=== PATIENT | female | born 1965 | race Caucasian/White ===

== ENCOUNTER 2019-03-30 13:49 | Outpatient (CLI) | payer SELFPAY ==
--- NOTE | 2019-03-30 14:01 | DI.RAD_ITS ---
EXAM: XR HIP LT COMPLETE AND AP PELVIS CLINICAL HISTORY: pain TECHNIQUE: Two views were obtained. COMPARISON: LEFT HIP COMPLETE from 11/07/2010 FINDINGS: Note is made of an IUD in the pelvis slightly to the left of midline. There is marked loss of cartil aginous joint space of the left hip. There are very prominent hypertrophic and sclerotic changes of the acetabulum and the femoral head with some superior femoral head remodeling noted. IMPRESSION: Severe DJD, left hip. Moderate degenerative changes, right hip, noted as well.
== END 2019-03-30 14:09 ==
PROVIDERS: PCP Nurse Practitioner; Visit Provider Student in an Organized Health Care Education/Training Program
DX: M25.552 Pain in left hip (principal); Z97.5 Presence of (intrauterine) contraceptive device; M16.12 Unilateral primary osteoarthritis, left hip
CPT/HCPCS: 73502

== ENCOUNTER 2020-03-15 13:25 | Outpatient (CLI) | payer MEDICAID, SELFPAY ==
--- NOTE | 2020-03-15 13:15 | DI.RAD_ITS ---
EXAM: XR PELVIS AP CLINICAL HISTORY: pre op VINITA. TECHNIQUE: 2D digital imaging was performed. COMPARISON: No exams were available for comparison FINDINGS: There are marked degenerative changes of the left hip characterized by loss of the superior joint spa ce, subchondral sclerosis and marginal osteophytes. Mild degenerative changes are seen in the right hip characterized by joint space narrowing and subchondral sclerosis. The bones are normally mineral ized. Note is made of an IUD. The soft tissues are unremarkable. IMPRESSION: Marked left osteoarthritis. Mild right osteoarthritis. DATA REPOSITORY: RADIATION DOSE DELIVERED:
== END 2020-03-15 13:45 ==
PROVIDERS: PCP Nurse Practitioner; Referring Provider Nurse Practitioner; Visit Provider Physician Assistant
DX: M16.0 Bilateral primary osteoarthritis of hip (principal)
CPT/HCPCS: 72170

== ENCOUNTER 2020-03-18 01:46 | Outpatient (CLI) | payer MEDICAID, SELFPAY ==
[2020-03-18 10:31] LABS: HCT 44.1 % (36.0-46.0); HGB 14.8 g/dL (11.2-15.7); MCH 31.9 pg (27.0-33.0); MCHC 33.6 % (32.0-36.0); MPV 10.1 fL (8.0-11.0); Platelet Count 269 10^3/uL (130-400); RBC 4.64 10^6/uL (3.93-5.22); RDW 12.3 % (11.7-14.6); RDW-SD 43.3 fL
[2020-03-18 11:16] LABS: Anion Gap 4.3 mmol/L (3-11); BUN 21 mg/dL (7-18); CO2 27.7 mmol/L (21.0-32.0); CREATININE 0.95 mg/dL (0.55-1.02); Chloride 101 mmol/L (98-107); Glucose 94 mg/dL (74-106); Potassium 3.7 mmol/L (3.5-5.1); Sodium 133 mmol/L (136-145)
== END 2020-03-18 02:06 ==
PROVIDERS: PCP Nurse Practitioner; Visit Provider Student in an Organized Health Care Education/Training Program
DX: M25.552 Pain in left hip (principal); M16.52 Unilateral post-traumatic osteoarthritis, left hip; Z01.818 Encounter for other preprocedural examination; Z01.812 Encounter for preprocedural laboratory examination
CPT/HCPCS: 36415; 80048; 85027; 86850; 86900; 86901

== ENCOUNTER 2020-03-18 03:32 | Outpatient (CLI) | payer MEDICAID, SELFPAY ==
[2020-03-19 15:32] LABS: COVID-19 RT-PCR UVMMC Result Negative (Negative)
== END 2020-03-18 03:52 ==
PROVIDERS: PCP Nurse Practitioner; Visit Provider Student in an Organized Health Care Education/Training Program
DX: Z11.52 Encounter for screening for COVID-19 (principal); Z01.818 Encounter for other preprocedural examination
CPT/HCPCS: U0003

== ENCOUNTER 2020-03-22 06:04 | Day surgery (SDC) | payer MEDICAID, SELFPAY ==
[2020-03-22] VITALS (9 sets, daily range): BP systolic 105–144; BP diastolic 50–95; PULSE 46–75; RESP 14–19; TEMP 36–36.9; O2SAT 96–100
[2020-03-22] MEDS: Celecoxib 200 MG CAP 400 MG PO (06:56)
[2020-03-22] MEDS: Acetaminophen 500 MG TAB 1000 MG PO (06:57)
[2020-03-22] MEDS: Lactated Ringers 1,000 ML 80 ML IV (06:57)
--- NOTE | 2020-03-22 07:00 | DI.RAD_ITS ---
EXAM: XR HIP LT IN OR CLINICAL HISTORY: DJD LEFT HIP. TECHNIQUE: 2D and realtime digital imaging was performed. COMPARISON: No exams were available for comparison FINDINGS: Fluoroscopy was provided in the OR for Dr. Thakur. Hard copy image shows placement of a left hip prosthesis. Please see procedure note for details. Fluoro time: 43.8 sec, 3.35 mGy RADIATION DOSE DELIVERED:
--- NOTE | 2020-03-22 07:45 | W.PM.DSUDISC ---
Documented by User: JUANCARLOS Garcia 03/22/20 07:46 Discharge Plan Disposition Patient Disposition: HOME Condition: Good Discharge Details Reason For Visit: Left VINITA Attending Provider: Levy Thakur Primary Care Provider: Damaris Scott Home Meds and New Rx's Prescriptions: New celecoxib [Celebrex] 200 mg capsule 200 mg PO BID Qty: 60 RF: 0 aspirin 81 mg tablet,delayed release (DR/EC) 81 mg PO BID Qty: 60 RF: 0 oxycodone 5 mg tablet 5 mg PO Q4H PRNQty: 18 RF: 0 pantoprazole [Protonix] 40 mg tablet,delayed release (DR/EC) 40 mg PO DAILY Qty: 30 RF: 0 acetaminophen [Tylenol Extra Strength] 500 mg tablet 500 mg PO Q6H PRNQty: 90 RF: 0 Discontinued ibuprofen 600 MG tablet 600 mg PO PRN RF: 0 Discharge Instructions Additional Instructions: Total Hip Discharge Instructions Activity: The most important activity is to walk. You should try to take short walks a few times a day. You have no restrictions on movement or positioning, but do not try to force what you do. You will find some stiffness and weakness with hip flexion (lifting your knee). Do not try to strengthen this too early, continue to practice walking and stairs and this will come. - Outpatient physical therapy can be helpful to help return you to a normal gait and improve your flexibility and strength. This can start around 2 weeks. For some patients, it?s not necessary. Usually this is determined at the time of discharge or at the first post-operative visit. - You should wear the BIGG hose on both legs for 2 weeks. Dressing: Keep the surgical dressing in place for at least one week. After the first week it may be removed and replace with light gauze and tape or nothing. It may get wet after 3 days but avoid soaking the dressing. If it gets wet, just lightly pat dry. It is important to always keep some gauze between skin folds, especially when you are sitting. Spend some time with the wound exposed when you are lying flat as the incision does wrinkle onto itself. Medications: - You should take Tylenol and an anti-inflammatory Celebrex as your primary pain control medications. If the Celebrex is too expensive or not covered, please call the office for another alternative (Advil/Ibuprofen or Naproxen/Aleve). - You have been prescribed a stronger pain medication Oxycodone for breakthrough pain, take as needed as prescribed. - You have also been prescribed a stomach acid reduction agent Pantoprozole to help reduce stomach acid and reflux. - You will be taking Aspirin 81mg twice a day for DVT prevention unless instructed otherwise. - If you have constipation you should take Colace or Miralax (both [id number]). It takes most people 3-4 days to have a bowel movement. Follow-up: 2 weeks If you have any acute concerns or questions, please do not hesitate to contact the office at [phone]. You may contact Dr. Thakur with any questions after hours through the hospital at [phone] or on his cell phone at [phone]. Stand Alone Forms: DSU Post op Instructions Referrals: Levy Thakur MD [ [facility] STAFF PHYSICIAN] - Equipment/Supplies: Walker Activity:: Activity as Tolerated Remove Dressings/Wound Care:: Do Not Remove Shower/Bathe:: 72 hours Diet:: As Tolerated Discharge Orders Discharge Orders: Discharge Order (Routine); Ordered 03/22/20 Ordered By: Rebecca Parisi Discharge Data Discharge Date/Time-TO BE ENTERED AT DEPARTURE: 03/22/20 13:45 DS: Diagnosis Discharge Diagnosis (1) Degenerative joint disease of left hip: Status: Chronic Documented by User: Levy Thakur MD 03/23/20 13:48 Discharge Plan Disposition Patient Disposition: HOME Condition: Good Discharge Details Reason For Visit: Left VINITA Attending Provider: Levy Thakur Primary Care Provider: Damaris Scott Home Meds and New Rx's Prescriptions: New celecoxib [Celebrex] 200 mg capsule 200 mg PO BID Qty: 60 RF: 0 aspirin 81 mg tablet,delayed release (DR/EC) 81 mg PO BID Qty: 60 RF: 0 oxycodone 5 mg tablet 5 mg PO Q4H PRNQty: 18 RF: 0 pantoprazole [Protonix] 40 mg tablet,delayed release (DR/EC) 40 mg PO DAILY Qty: 30 RF: 0 acetaminophen [Tylenol Extra Strength] 500 mg tablet 500 mg PO Q6H PRNQty: 90 RF: 0 Discontinued ibuprofen 600 MG tablet 600 mg PO PRN RF: 0 Discharge Instructions Additional Instructions: Total Hip Discharge Instructions Activity: The most important activity is to walk. You should try to take short walks a few times a day. You have no restrictions on movement or positioning, but do not try to force what you do. You will find some stiffness and weakness with hip flexion (lifting your knee). Do not try to strengthen this too early, continue to practice walking and stairs and this will come. - Outpatient physical therapy can be helpful to help return you to a normal gait and improve your flexibility and strength. This can start around 2 weeks. For some patients, it?s not necessary. Usually this is determined at the time of discharge or at the first post-operative visit. - You should wear the BIGG hose on both legs for 2 weeks. Dressing: Keep the surgical dressing in place for at least one week. After the first week it may be removed and replace with light gauze and tape or nothing. It may get wet after 3 days but avoid soaking the dressing. If it gets wet, just lightly pat dry. It is important to always keep some gauze between skin folds, especially when you are sitting. Spend some time with the wound exposed when you are lying flat as the incision does wrinkle onto itself. Medications: - You should take Tylenol and an anti-inflammatory Celebrex as your primary pain control medications. If the Celebrex is too expensive or not covered, please call the office for another alternative (Advil/Ibuprofen or Naproxen/Aleve). - You have been prescribed a stronger pain medication Oxycodone for breakthrough pain, take as needed as prescribed. - You have also been prescribed a stomach acid reduction agent Pantoprozole to help reduce stomach acid and reflux. - You will be taking Aspirin 81mg twice a day for DVT prevention unless instructed otherwise. - If you have constipation you should take Colace or Miralax (both [id number]). It takes most people 3-4 days to have a bowel movement. Follow-up: 2 weeks If you have any acute concerns or questions, please do not hesitate to contact the office at [phone]. You may contact Dr. Thakur with any questions after hours through the hospital at [phone] or on his cell phone at [phone]. Stand Alone Forms: DSU Post op Instructions Referrals: Levy Thakur MD [ [facility] STAFF PHYSICIAN] - Equipment/Supplies: Walker Activity:: Activity as Tolerated Remove Dressings/Wound Care:: Do Not Remove Shower/Bathe:: 72 hours Diet:: As Tolerated Discharge Orders Discharge Orders: Discharge Order (Routine); Ordered 03/22/20 Ordered By: Rebecca Parisi Discharge Data Discharge Date/Time-TO BE ENTERED AT DEPARTURE: 03/22/20 13:45
[2020-03-22] MEDS: ceFAZolin 2 GM/50 ML BAG IVPB (08:29)
[2020-03-22] MEDS: Ketorolac 30 MG/ML VIAL (09:02)
[2020-03-22] MEDS: Bupivacaine 0.25% Pres-Free 30 ML VIAL (09:02)
--- NOTE | 2020-03-22 11:25 | PT.INIE ---
Date of service: 03/22/20 Time of Service: 11:25 PT Notes Visit Reasons: Left VINITA Physical Therapy Day Surgery Unit Initial Evaluation Date: 03/22/2020 Referring Doctor: JUANCARLOS Garcai PT Orders: PT CONSULT: Status post Ortho surgery Precautions: WBAT on left LE. Patient Profile/Admitting Diagnosis: Injury is a 54-year-old male with degenerative joint disease of the left hip and is status post left total hip arthroplasty on postoperative day 0. PMHX: Medical History (Updated 03/15/20 @ 13:23 by Adina Bernstein) Asthma Crohn's disease Degenerative joint disease of left hip Endometriosis Surgical History (Updated 03/15/20 @ 13:23 by Adina Bernstein) History of endometrial ablation Status post arthroscopy of left knee ~18-19 years old Social History/Home Situation: Lives with in a private home with 7 steps to enter without rails. Works in her own farm. Equipment Owned/DME: Front-wheeled walker, bilateral axillary crutches Subjective: Agreeable to PT consult. Complained of nausea on sitting up at edge of bed, vomited x 1. Nurse Luba assisted with patient care and rechecked vital signs. Agreeable to eatinglunch first prior to trying out the stairs. Objective: General Observation: Supine in stretcher. IV access in left UE. Bilateral TEDS on B legs. Cold pack over surgical site. Nurse Rey assisting during mobility assessment. Mental Status: Alert and oriented x4 Pain: 1/10 in the left hip with movement Vital signs: Blood pressure stayed within normal limits despite report of nausea. ROM: Right Upper Extremity: Shoulder Flexion WFL. Shoulder abduction WFL. Elbow flexion WFL. Wrist flexion WFL. Functional opening and closing of hand WFL. Left Upper Extremity: Shoulder Flexion WFL. Shoulder abduction WFL. Elbow flexion WFL. Wrist flexion WFL. Functional opening and closing of hand WFL. Right Lower Extremity: Hip flexion WFL. Hip abduction WFL. Knee flexion WFL. Ankle dorsiflexion WFL. Ankle plantarflexion WFL. Left Lower Extremity: Hip flexion WFL. Hip abduction WFL. Knee flexion WFL. Ankle dorsiflexion WFL. Ankle plantarflexion WFL. Strength: Right Upper Extremity: Shoulder flexors 5/5. Shoulder abductors 5/5. Elbow flexors 5/5. Elbow extensors 5/5. Plate Keeper strong. Left Upper Extremity: Shoulder flexors 5/5. Shoulder abductors 5/5. Elbow flexors 5/5. Elbow extensors 5/5. Plate Keeper strong. Right Lower Extremity: Hip flexors 5/5. Hip abductors 5/5. Knee flexors 5/5. Knee extensors 5/5. Ankle dorsiflexors 5/5. Ankle plantarflexors 5/5. Left Lower Extremity:Hip flexors 4-/5. Hip abductors 4-/5. Knee flexors 5/5. Knee extensors 5/5. Ankle dorsiflexors 5/5. Ankle plantarflexors 5/5. Sensation: Intact as to pain and light pressure in bilateral lower extremities Bed Mobility/Transfers: Supine to sit standby assist. Reported nausea and vomited x 1 after about 5 minutes in this position. Nurse Luba assisted with patient care and rechecked vital signs. Sit to stand standby assist Stand to sit standby assist Bed to chair contact-guard assist Gait: Guided patient through level surface ambulation using a front wheeled walker with WBAT on the left LE requiring only contact-guard assist for 10 feet initially +10 feet +200 feet with step through gait pattern with complaints of mild discomfort in the left hip that subsided later on in the activity. Initially complained of nausea but diminished with activity. Balance: Static Sitting: Normal Dynamic Sitting: Good Static Standing: Fair Dynamic Standing: Fair Special Tests: Mobility Limitations Standardized Measure [facility] AM-PAC 6 clicks Basic Mobility Inpatient Short Form: Raw Score: 21 CMS Score: 29% deficit Informed Consent/Education: Patient instructed in purpose of PT consult. Education and training on initial set of exercises that can be done at home have been completed with patient. Assessment: Jesse demonstrates the need for a front wheeled walker to maximize independence and reduce fall risk at home. Initial evaluation today limited by reports of nausea. Deferred stairs training until after lunch. Patient presents with clinical signs and symptoms consistent with current/admitting diagnoses that have resulted to mobility limitations, gait instability, generalized weakness, and impairment of motor control as demonstrated by the following impairment level findings: 1. Decreased strength to left hip muscle groups 2. Impaired standing balance Impairments are contributing to the following functional limitations: 1. Inability to safely ambulate without assistive device 2. Increased completion time for mobility ADL performance 3. Increased fall risk Patient is assessed as a 44590 moderate complexity based on the following: History: 54-year-old female with impairment level findings, functional limitations, and past medical history as indicated above Examination: Demonstrable impairment in strength, balance, and mobility level with underlying impairments and functional limitations as documented above Presentation: Evolving Decision Makin moderate complexity Goals: N/A. PT evaluation and 1-2 treatment sessions only for functional mobility training using recommended AD and for HEP instruction. Plan of Care/Treatment Plan: N/A. PT evaluation and 1-2 treatment session only for functional mobility training using recommended AD and for HEP instruction. DISCHARGE RECOMMENDATIONS: Home when medically cleared by orthopedic surgeon. Outpatient physical therapy services in order to facilitate return to independent community ambulation and to vocational activities. TREATMENT CODE/TIME: 48951 x 30 minutes, 30100 x 23 minutes beginning at 11:25 AM. Thank you for the opportunity to participate in the care of this patient. Faby Beaver PT, DPT, CLT [facility] [place], [place]
--- NOTE | 2020-03-22 14:06 | PT.INTREAT ---
Date of service: 03/22/20 Time of Service: 13:30 PT Notes Visit Reasons: Left VINITA Inpatient Physical Therapy Treatment Note [facility] Date: 03/22/2020 PRECAUTIONS: WBAT L SUBJECTIVE: Jesse states that she is feeling pretty good, and that she feels ready to discharge to home. OBJECTIVE: Patient treated in DSU. PAIN: No c/o pain BED MOBILITY/TRANSFERS Sit-stand: S Stand-sit: S GAIT Assistive Device: FWW Weight bearing: WBAT L LE Assist: S Distance: 100' + 40' x2 STAIRS: Up/down 12x6 using B axillary crutches and a step-to pattern with SBA Fit patient to her personal FWW and B axillary crutches for at home use for safety. ASSESSMENT: Patient tolerated session well without complaint. She was able to demonstrate steady and safe stair negotiation as well as gait training with FWW. PLAN: Discharge to home, per MD. TREATMENT CODE/TIME: 25 minutes; 89922 x2
--- NOTE | 2020-03-22 19:40 | W.PM.OP ---
Date of service: 03/22/20 Time of Service: 09:52 Operative Note Operative Note DATE OF PROCEDURE: 03/22/20 PRE-OP DIAGNOSIS: Left Hip Osteoarthritis POST-OP DIAGNOSIS: same PROCEDURE: Left Anterior Total Hip Arthroplasty SURGEON: Levy Thakur [employer] WRITER: Rebecca Parisi ANESTHESIA: spinal ESTIMATED BLOOD LOSS: 400 PATHOLOGY: none sent TOURNIQUET TIME: 0 COMPLICATIONS: None Patient was transported to: PACU Patient's condition: stable Implants: 1. Depuy [place] Acetabular Component, 50mm 2. Depuy Acetabular Liner, [id number] 3. Depuy Corail High Offset Collared Femoral Stem, Size 11 4. Depuy Altrx Ceramic Femoral Head, Size 32+1mm Indications: I have seen Jesse in clinic for symptoms of hip arthritis, confirmed with radiographic findings. Jesse has exhausted nonoperative methods and was having significant limitations in daily function and desired better function and less pain. I discussed the technical details of a hip replacement. I explained the risks of the procedure to include, but not limited to, bleeding, infection, pain, stiffness, fracture, damage to nerves and vessels, damage to muscles and tendons, loosening, instability, leg length inequality, need for repeat procedure, blood clot and cardiopulmonary demise. Despite these risks, she elected to proceed. Findings: There was significant signs of arthritis throughout the hip. Large osteophytes around the femur and the acetabulum. Procedure Description: Jesse was greeted in the preoperative holding area where the correct side was identified and marked. The consent was reviewed with the patient and signed. The history and physical was updated. All questions were answered. Jesse was taken back to the operating room. A spinal anesthestic was then administered. The feet were wrapped with cast padding and Coban and then placed into the boot liners and then into the boots. Care was taken to protect the skin and make sure the heels were fully down and the boots were stable. The patient was then positioned onto the HANA table. Both legs were held in a neutral position. SCDs were applied. The patient was then slid down onto a peroneal post. A preoperative AP pelvis was obtained to serve as a reference for determining leg lengths. Prophylactic antibiotics in the form of Cefazolin were administered. 1g of Tranxemic Acid was given intravenously within 30 minutes of incision. The left leg was then prepped with Chloraprep and draped in a standard fashion. A second prep with Chloraprep was performed prior to placement of a shower-curtain type drape with Iodine impregnated skin protection. A timeout to confirm correct identity, side and site, procedure, allergies, anesthesia, and medical concerns was performed. An obliquely oriented incision was made starting lateral to the ASIS and running distal over the Tensor Fascia Iarida (TFL) muscle belly toward the fibular head, approximately 10cm. The skin and soft tissue was dissected sharply, through Marilyn?s fascia, and to the fascia of the TFL. With the fascia and superior border of the IT band identified, the fascia was incised with a new knife just above any perforators from the IT band. The TFL muscle belly was bluntly dissected away from the fascia and moved laterally. The fat between TFL and rectus was identified to ensure the dissection was not within the TFL. Blunt dissection created space between abductors and the capsule and retractor was placed over the lateral femoral neck. The fibers of the rectus femoris tendon were identified and these were freed from the anterior capsule. A second cobra retractor was placed around the medial femoral neck. The TFL was further retracted laterally to show the deep fascia. Careful dissection through this layer identified three main crossing vessels of the lateral femoral circumflex. These were cauterized in multiple locations and then cut without any noticeable bleeding. The TFL was further released bluntly from the deep fascia to expose anterior hip capsule and fat The Luciano orthopaedic retractor was then placed beneath the TFL and against sartorius and medial soft tissues to protect and retract the soft tissues. A T-capsulotomy was then performed starting at the superior lateral acetabulum and moving distally to the intertrochanteric ridge. These capsular flaps were tagged with a No. 1 Ethibond and elevated from within. The capsular flaps were released to the shoulder of the lateral neck and to the lesser trochanter to give excellent visualization of the proximal femur. A neck osteotomy was performed using an oscillating saw based on preoperative templates. This cut started in the shoulder and of the lateral neck and exited medially. The saw was at all times directed medially to avoid injury to the greater trochanter. 6cm of traction was applied to the leg and the osteotomy opened. The femoral head was removed with a corkscrew, making sure to protect the TFL on its exit. Traction was released after head removal. This was measured on the back table to determine the starting reamer size. Portions of the rectus obscuring visualization were minimally elevated off the superior acetabulum. An anterior retractor was placed over the anterior wall between capsule and labrum and attached to the Gripper retraction system. The femur was rotated to 90 degrees and medial capsule was fully released until the lesser trochanter was palpable and visible; the femur was returned to 30 degrees. A posterior retractor was placed similarly between capsule and labrum. This provided excellent visualization. The contents of the cotyloid fossa were removed with electrocautery and the labrum was removed with a knife. There was a notable floor osteophyte. There was significant chondromalacia of the superior acetabulum. Acetabular reaming began with a 46mm reamer. This first reaming was directed anterior to posterior and medial to get down to the true floor. This was inspected and reamed until the true floor was reached. The anterior retractor was then released and entry and exit was provided by traction on the capsular flaps. I then reamed sequentially up to a 50mm reamer where good fit was obtained. The larger reamers were oriented based on anatomical reference of the anterior and lateral anthony to ensure proper abduction and anteversion. Positioning and size was confirmed with the fluoroscopy. A 50mm Depuy [place] acetabular component was selected. The acetabulum was reamed around the periphery with the selected acetabular size to prevent a rim fit. The deep tissues were irrigated. The acetabular component was then impacted in a position of about 40-45 degrees of abduction and 15-20 degrees of anteversion, using the patient?s anatomy as the ultimate landmark. Fluoroscopy was used to confirm this. There was excellent public policy associate of the acetabular component and the inserting handle was removed. The acetabular liner, Depuy [id number] polyethylene liner, was inserted and lined up with the tines of the acetabular component. There was no soft tissue interposition. The liner was then impacted into position and confirmed to be well-seated. A portion of the audelia-articular cocktail was then injected around the acetabulum into the capsule and periosteum. This cocktail consisted of 50cc of 0.25% Bupivicaine and 20cc of Exparel and 30mg of Ketorolac. The leg was rotated to 120 degrees. Any remaining medial capsule was released until the lesser trochanter was easily palpable. A retractor was placed medially. The lateral capsule was further released into the shoulder to allow access to the greater trochanter. A Covarrubias retractor was placed over the greater trochanter which allowed the trochanter to flip in front of the capsule for excellent exposure. The leg was brought down into maximal extension and 20 degrees of adduction while ensuring there was no impingement on the acetabulum. Any remnant capsule within the trochanter was released. Piriformis and obturator externis were identified and protected. There was excellent access to the proximal femur. The lateral neck remnant was removed with a rongeur. A blunt canal probe was used to identify the canal and trajectory for later broaching. A box osteotome initiated the broach course. A small curved rasp and a curved curette were used to work laterally. Broaching then began with a size 8 Corail broach. This was inserted manually around the trochanter and into the canal before mallet blows. The broach was seated to a few millimeters below the cut level based on the neck cut and the preoperative template. Sequential broaching was continued with the [employer] pneumatic broaching device until a tight fit was obtained with good rotational control of the femur. A trial high offset neck was inserted along with a +1 trial head. The leg was brought out of extension and adduction and then reduced with traction and internal rotation. The leg was stable anteriorly in a position of 30 degrees of extension and 90 degrees of external rotation. Fluoroscopy was used to ensure there was no fracture and the stem was seated well. Leg lengths were checked with an AP pelvis and pelvic reference points. My[employer] navigation system was used to confirm appropriate positioning and leg length and offset. Once content with the desired offset and leg lengths, the leg was brought back into extension, external rotation and adduction. The periosteum and surrounding tissue was injected with remaining portion of the audelia-articular cocktail. The proximal femur was irrigated as well as the deep tissues. The Depuy [place] high offset collared stem, size 11, was then manually inserted into the proximal femur making sure to control rotation. It was then malleted into position with light blows, giving breaks to allow bone expansion and decrease risk of fracture. The selected Depuy Altrx Ceramic Head, size 32+1mm, was then placed onto the clean and dry trunnion and secured with impaction onto the tapered fit. The leg was brought back out of extension and adduction and reduced with traction and internal rotation. Stability was confirmed with no shuck at 90 degrees of external rotation and 30 degrees of extension. No impingement through range of motion arc. Final x-ray images were obtained with fluoroscopy to confirm adequate positioning and no intraoperative fracture. The deep tissues were thoroughly irrigated with Irrisept chlorhexadine solution. The second dose of TXA 1g was administered intravenously.The capsule was then reapproximated with the previously placed Ethibond sutures. The TFL fascia was finally closed with a No. 2 Stratafix, barbed suture. Deep tissues were then reapproximated with 0 Vicryl and a running 2-0 Vicryl. The skin was closed with a running 4-0 Monocryl in a subcuticular fashion. This was reinforced with skin glue. A Mepilex silver dressing was applied. At the end of the case, all counts were correct. Jesse was transferred to the hospital bed without difficulty and suffering no apparent complication. Jesse has a good prognosis. Physical therapy will start today and without restrictions, weight-bearing as tolerated. Aspirin 81mg BID will be used for DVT prophylaxis.
== END 2020-03-22 13:45 | disposition home or self-care (01) ==
PROVIDERS: PCP Nurse Practitioner; Visit Provider Student in an Organized Health Care Education/Training Program
PROC: (CPT 27130; principal; 2020-03-22 08:00)
DX: M16.52 Unilateral post-traumatic osteoarthritis, left hip (principal); W55.1 Contact with horse
CPT/HCPCS: 27130; 20985; C1776; 81025; 97162; 97530; 73501; J0690; J1100; J1885; J2001; J2250; J2405

== ENCOUNTER 2020-04-04 10:22 | Outpatient (CLI) | payer MEDICAID, SELFPAY ==
--- NOTE | 2020-04-04 09:30 | DI.RAD_ITS ---
EXAM: XR HIP LT COMPLETE AP PELVIS CLINICAL HISTORY: post operative. TECHNIQUE: 2D digital imaging was performed. COMPARISON: CR XR PELVIS AP from 03/15/2020 FINDINGS: There has been interval placement of a left hip prosthesis. Components are in satisfactory position alignment. No fracture or loosening. No radiographic evidence of osteomyelitis. Moderate degenerat harinder changes are again noted in the opposite-right hip. IUD noted in the pelvis. IMPRESSION: Satisfactory left hip prosthesis appearance. DATA REPOSITORY: RADIATION DOSE DELIVERED:
== END 2020-04-04 10:42 ==
PROVIDERS: PCP Nurse Practitioner; Referring Provider Nurse Practitioner; Visit Provider Physician Assistant Surgical
DX: Z96.642 Presence of left artificial hip joint (principal)
CPT/HCPCS: 73502

== ENCOUNTER 2021-05-09 11:20 | Outpatient (REF) | payer MEDICAID, SELFPAY ==
--- NOTE | 2021-05-09 09:30 | PAPFT_PTH ---
PATIENT: Jesse Benitez LOC: [facility] U#:[id number] AGE/SX: 55/F ROOM: RE05/09/[address]: Guerda Goodman NP : 1965 BED: DIS: 05/09/2021 SPEC #: [id number] RECD: 05/09/21 12:58 STATUS: KRYSSendy ENRIQUEZ #: [id number] CAS: 05/09/21 09:[address]: Guerda Goodman NP DEPT: [facility] Cytology RECD BY: Jenny Mendez ENTERED: 05/09/21 12:58 SP TYPE: PAPFT OTHR DR: Damaris Scott Tissues: 1 - CX/ENDOCX FOR PAP SMEARS Procedures: PAP THIN PREP/U[facility] Screening HPV DNA PROBE Comments: [id number]
== END 2021-05-09 11:21 | disposition home or self-care (01) ==
LOC: LBN 11:20
PROVIDERS: PCP Nurse Practitioner; Visit Provider Nurse Practitioner Women's Health
DX: Z12.4 Encounter for screening for malignant neoplasm of cervix (principal); Z11.51 Encounter for screening for human papillomavirus (HPV)
CPT/HCPCS: 88142; 87624